=== PATIENT | male | born 1970 | race African-American/Black ===

== ENCOUNTER 2022-09-28 16:05 | Inpatient (IN) | payer MEDICAID ==
[~2022-09-28] VITALS: Ht 177.8 cm; Wt 66.7 kg
[~2022-09-28 16:05] MED LIST: CALCIUM CHLORIDE 1GM/10ML SYR IV ONE; EPINEPHRINE 0.1MG/ML (1:10,000) 10ML SYR ONE; SODIUM BICARBONATE 8.4% 1 MEQ/ML 50ML SYR IV ONE
[2022-09-28] MEDS ORDERED: NOREPINEPHRINE 8 MG in DEXT 5% WATER 242 ML IV STA (16:13)
[2022-09-28] MEDS ORDERED: SODIUM CHLORIDE 0.9% 1000ML BAG (SEPSIS BOLUS) IV ONE (16:15)
[2022-09-28] MEDS ORDERED: PIPERACILLIN/TAZ 3.375G PREMIX 50 ML IV ONE (16:15)
[2022-09-28] MEDS ORDERED: VANCOMYCIN 1G PREMIX 200 ML IV ONE (16:15)
[2022-09-28 16:42] LABS: BASOPHILS % 0.3 % (0.0-2.0); EOSINOPHILS % 0.1 % (0.0-5.0); HEMATOCRIT. 36.3 % (42.0-52.0); HEMOGLOBIN. 10.9 g/dL (14.0-18.0); LYMPHOCYTES % 17.3 % (20.0-50.0); MEAN CORPUSCULAR HEMOGLOBIN 24.3 pg (28.0-32.0); MEAN CORPUSCULAR VOLUME 81.3 fL (80.0-94.0); MEAN PLATELET VOLUME 6.8 fl (7.4-10.4); NEUTROPHILS % 79.3 % (40.0-76.0); PLATELET 501 x1000/uL (130-400); RED BLOOD CELL COUNT 4.46 mill/uL (4.7-6.1); RED CELL DISTRIBUTION WIDTH 17.4 % (11.6-14.6)
[2022-09-28 16:46] LABS: CHLORIDE 99 mEq/L (98-107)
[2022-09-28 16:47] LABS: D-DIMER 4.09 mg/L FEU (<0.50); INR 1.1; PROTHROMBIN TIME 11.3 sec (9.6-11.0)
[2022-09-28 16:48] LABS: BG BASE EXCESS 4.5 mmol/L (-2.0-2.0); BG CARBOXYHEMOGLOBIN 0.4 % (0.5-1.5); BG DEOXYHEMOGLOBIN 3.6 % (0.0-5.0); BG FRACTION INSPIRED OXYGEN 100; BG HCO3 ACT 32.5 mmol/L (22.0-26.0); BG METHEMOGLOBIN 0.2 % (0.0-1.5); BG OXYGEN SATURATION 96.4 % (92.0-98.5); BG OXYHEMOGLOBIN 95.8 % (94.0-97.0); BG PCO2 67.2 mmHg (35.0-45.0); BG PH 7.302 (7.350-7.450); BG PO2 95.6 mmHg (75.0-100.0); BG SAMPLE SITE LEFT RADIAL; BG TOTAL HEMOGLOBIN 11.4 g/dL (12.0-18.0); BG TOTAL RESPIRATORY RATE 19 b/min; BG VENT MODE PRVC
[2022-09-28 16:56] LABS: CREATINE KINASE 37 IU/L (39-308)
[2022-09-28 18:15] LABS: CLARITY URINE CLEAR (CLEAR); COLOR URINE YELLOW (YELLOW); KETONES URINE NEGATIVE (NEGATIVE); LEUKOCYTE ESTERASE URINE NEGATIVE (NEGATIVE); NITRITE URINE NEGATIVE (NEGATIVE); OCCULT BLOOD URINE NEGATIVE (NEGATIVE); PH URINE 6.5 (4.5-8.0); PROTEIN URINE 1+ (NEGATIVE); SPECIFIC GRAVITY URINE 1.019 (1.005-1.030)
[2022-09-28] MEDS ORDERED: NOREPINEPHRINE 8 MG in DEXT 5% WATER 242 ML IV ONE (18:30)
[2022-09-28] MEDS ORDERED: FENTANYL CITRATE/PF 50MCG/ML 2ML VIAL IV ONE (19:15)
[2022-09-28] MEDS ORDERED: IOHEXOL-350 100 ML BOTTLE ONE (20:05)
[2022-09-29] VITALS (34 sets, daily range): BP systolic 64–158; BP diastolic 22–84
[2022-09-29] MEDS ORDERED: DEXTROSE 50% WATER 50ML SYRINGE IV PRN (09:45)
[2022-09-29] MEDS: SODIUM CHLORIDE 0.45% 1,000 ML IV SCH (09:45)
[2022-09-29] MEDS: AZITHROMYCIN 500 MG in DEXT 5% WATER 250 ML IV SCH (10:54)
[2022-09-29] MEDS ORDERED: FUROSEMIDE 40MG/4ML VIAL IVP NR (11:00)
[2022-09-29] MEDS: ENOXAPARIN 40MG/0.4ML SYR SUBCUT SCH (11:07)
[2022-09-29 11:23] LABS: BG BASE EXCESS 7.1 mmol/L (-2.0-2.0); BG CARBOXYHEMOGLOBIN 0.3 % (0.5-1.5); BG DEOXYHEMOGLOBIN 0.5 % (0.0-5.0); BG FRACTION INSPIRED OXYGEN 100; BG HCO3 ACT 30.4 mmol/L (22.0-26.0); BG METHEMOGLOBIN 0.3 % (0.0-1.5); BG OXYGEN SATURATION 99.5 % (92.0-98.5); BG OXYHEMOGLOBIN 98.9 % (94.0-97.0); BG PCO2 37.7 mmHg (35.0-45.0); BG PH 7.524 (7.350-7.450); BG PO2 261.3 mmHg (75.0-100.0); BG SAMPLE SITE RIGHT RADIAL; BG TOTAL HEMOGLOBIN 9.2 g/dL (12.0-18.0); BG VENT MODE VENT - PRVC
[2022-09-29] MEDS ORDERED: VANCOMYCIN 1G PREMIX 200 ML IV SCH ×2 (12:00→14:00)
[2022-09-29] MEDS: BLOOD SUGAR DIAGNOSTIC STRIP TEST SCH ×3 (12:40→21:17)
[2022-09-29] MEDS: INSULIN LISPRO 100 UNITS/ML SUBCUT SCH ×3 (13:34→21:08)
[2022-09-29] MEDS ORDERED: PIPERACILLIN/TAZOBACTAM 3.375 G in DEXTROSE 5% WATER 50 ML IV SCH (14:00)
[2022-09-29] MEDS ORDERED: IPRATROPIUM/ALBUTEROL 0.5-3(2.5)MG/3ML NEB HHN PRN (14:15)
[2022-09-29 17:06] LABS: HEMATOCRIT. 26.1 % (42.0-52.0); MEAN CORPUSCULAR HEMOGLOBIN 24.5 pg (28.0-32.0); MEAN CORPUSCULAR VOLUME 79.5 fL (80.0-94.0); MEAN PLATELET VOLUME 6.9 fl (7.4-10.4); PLATELET 298 x1000/uL (130-400); RED BLOOD CELL COUNT 3.29 mill/uL (4.7-6.1); RED CELL DISTRIBUTION WIDTH 17.8 % (11.6-14.6)
[2022-09-29 17:09] LABS: CHLORIDE 104 mEq/L (98-107)
[2022-09-29 17:16] LABS: PHOSPHORUS 3.7 mg/dL (2.5-4.9)
[2022-09-29] MEDS: VANCOMYCIN 1G PREMIX 200 ML IV SCH (18:49)
[2022-09-29 19:36] LABS: PLATELET ESTIMATE NORMAL
[2022-09-29 21:59] LABS: CLARITY URINE TURBID (CLEAR); COLOR URINE ORANGE (YELLOW); KETONES URINE TRACE (NEGATIVE); LEUKOCYTE ESTERASE URINE TRACE (NEGATIVE); NITRITE URINE NEGATIVE (NEGATIVE); OCCULT BLOOD URINE 2+ (NEGATIVE); PH URINE 5.5 (4.5-8.0); PROTEIN URINE 3+ (NEGATIVE); SPECIFIC GRAVITY URINE 1.044 (1.005-1.030)
[2022-09-29 22:16] LABS: *AMPHETAMINES SCREEN URINE NEGATIVE (NEGATIVE); *BARBITURATES SCREEN URINE NEGATIVE (NEGATIVE); *BENZODIAZEPINES SCREEN URINE NEGATIVE (NEGATIVE); *COCAINE SCREEN URINE NEGATIVE (NEGATIVE); CANNABINOID URINE SCREEN NEGATIVE (NEGATIVE); METHADONE URINE SCREEN NEGATIVE (NEGATIVE); OPIATES URINE SCREEN NEGATIVE (NEGATIVE); PHENCYCLIDINE URINE SCREEN NEGATIVE (NEGATIVE)
[2022-09-30] VITALS (48 sets, daily range): BP systolic 76–156; BP diastolic 35–86
[2022-09-30] MEDS: SODIUM CHLORIDE 0.45% 1,000 ML IV SCH (00:36)
[2022-09-30] MEDS: VANCOMYCIN 1G PREMIX 200 ML IV SCH ×2 (02:52→09:00)
[2022-09-30] MEDS ORDERED: DIGOXIN 500MCG/2ML AMP IV NR (04:15)
[2022-09-30] MEDS ORDERED: PHENYLEPHRINE 100 MG in DEXT 5% WATER 240 ML IV PRN (04:15)
[2022-09-30] MEDS ORDERED: DIGOXIN 500MCG/2ML AMP IV PRN ×2 (04:53→07:20)
[2022-09-30] MEDS: PIPERACILLIN/TAZOBACTAM 3.375 G in DEXTROSE 5% WATER 50 ML IV SCH ×5 (05:31→22:06)
[2022-09-30 06:04] LABS: HEMATOCRIT. 24.5 % (42.0-52.0); HEMOGLOBIN. 7.7 g/dL (14.0-18.0); MEAN CORPUSCULAR HEMOGLOBIN 24.8 pg (28.0-32.0); MEAN CORPUSCULAR VOLUME 79.2 fL (80.0-94.0); MEAN PLATELET VOLUME 6.9 fl (7.4-10.4); PLATELET 287 x1000/uL (130-400); RED CELL DISTRIBUTION WIDTH 17.2 % (11.6-14.6)
[2022-09-30 06:30] LABS: CHLORIDE 102 mEq/L (98-107)
[2022-09-30] MEDS: BLOOD SUGAR DIAGNOSTIC STRIP TEST SCH ×3 (08:14→12:48)
[2022-09-30] MEDS: FAMOTIDINE 20MG/2ML VIAL IV SCH (08:49)
[2022-09-30] MEDS: INSULIN LISPRO 100 UNITS/ML SUBCUT SCH ×3 (08:50→23:40)
[2022-09-30] MEDS ORDERED: INFLUENZA VACCINE 05/PF 0.5 ML SYRINGE IM ONE (09:15)
[2022-09-30 10:41] LABS: BG BASE EXCESS 6.7 mmol/L (-2.0-2.0); BG CARBOXYHEMOGLOBIN 0.9 % (0.5-1.5); BG DEOXYHEMOGLOBIN 2.3 % (0.0-5.0); BG FRACTION INSPIRED OXYGEN 50; BG METHEMOGLOBIN 0.4 % (0.0-1.5); BG OXYGEN SATURATION 97.7 % (92.0-98.5); BG OXYHEMOGLOBIN 96.4 % (94.0-97.0); BG PCO2 43.7 mmHg (35.0-45.0); BG PH 7.469 (7.350-7.450); BG PO2 100.1 mmHg (75.0-100.0); BG SAMPLE SITE RIGHT RADIAL; BG TOTAL HEMOGLOBIN 7.9 g/dL (12.0-18.0); BG VENT MODE VENT - APRV
[2022-09-30] MEDS: SODIUM CHLORIDE 0.9% 1,000 ML IV SCH ×2 (10:43→22:07)
[2022-09-30] MEDS: ENOXAPARIN 40MG/0.4ML SYR SUBCUT SCH (10:44)
[2022-09-30 11:12] LABS: T4 FREE 1.23 ng/dL (0.76-1.46)
[2022-09-30] MEDS: AZITHROMYCIN 500 MG in DEXT 5% WATER 250 ML IV SCH (13:04)
[2022-09-30 14:57] LABS: TOTAL IRON BINDING CAPACITY 187 ug/dL (250-450)
[2022-09-30 15:24] LABS: VITAMIN B12 SERUM >2000 pg/mL pg/mL (211-911)
[2022-09-30 16:38] LABS: PLATELET ESTIMATE NORMAL
[2022-09-30] MEDS ORDERED: IPRATROPIUM BROMIDE (0.02%) 0.5MG/2.5ML NEB HHN PRN (18:45)
[2022-09-30] MEDS ORDERED: ALBUTEROL (0.083%) 2.5MG/3ML NEB HHN PRN (18:45)
[2022-10-01] VITALS (20 sets, daily range): BP systolic 73–164; BP diastolic 51–86
[2022-10-01] MEDS ORDERED: VANCOMYCIN 1.25GM PMX (XELLIA) 250 ML IV SCH
[2022-10-01] MEDS: BLOOD SUGAR DIAGNOSTIC STRIP TEST SCH ×5 (00:33→23:39)
[2022-10-01] MEDS: PIPERACILLIN/TAZOBACTAM 3.375 G in DEXTROSE 5% WATER 50 ML IV SCH ×3 (05:41→21:18)
[2022-10-01] MEDS: INSULIN LISPRO 100 UNITS/ML SUBCUT SCH ×4 (05:58→23:39)
[2022-10-01 06:51] LABS: BASOPHILS % 0.1 % (0.0-2.0); EOSINOPHILS % 0.7 % (0.0-5.0); HEMATOCRIT. 25.3 % (42.0-52.0); HEMOGLOBIN. 7.9 g/dL (14.0-18.0); LYMPHOCYTES % 7.3 % (20.0-50.0); MEAN CORPUSCULAR HEMOGLOBIN 24.8 pg (28.0-32.0); MEAN PLATELET VOLUME 7.1 fl (7.4-10.4); NEUTROPHILS % 80.9 % (40.0-76.0); PLATELET 287 x1000/uL (130-400); RED BLOOD CELL COUNT 3.17 mill/uL (4.7-6.1); RED CELL DISTRIBUTION WIDTH 17.2 % (11.6-14.6)
[2022-10-01 07:35] LABS: CHLORIDE 104 mEq/L (98-107)
[2022-10-01 08:59] LABS: BG BASE EXCESS 6.6 mmol/L (-2.0-2.0); BG CARBOXYHEMOGLOBIN 0.8 % (0.5-1.5); BG DEOXYHEMOGLOBIN 12.2 % (0.0-5.0); BG HCO3 ACT 31.1 mmol/L (22.0-26.0); BG METHEMOGLOBIN 0.5 % (0.0-1.5); BG OXYGEN SATURATION 87.6 % (92.0-98.5); BG OXYHEMOGLOBIN 86.5 % (94.0-97.0); BG PCO2 44.6 mmHg (35.0-45.0); BG PH 7.461 (7.350-7.450); BG PO2 55.8 mmHg (75.0-100.0); BG SAMPLE SITE RIGHT RADIAL; BG TOTAL HEMOGLOBIN 8.2 g/dL (12.0-18.0)
[2022-10-01] MEDS: FAMOTIDINE 20MG/2ML VIAL IV SCH (09:03)
[2022-10-01] MEDS: AZITHROMYCIN 500 MG in DEXT 5% WATER 250 ML IV SCH (09:04)
[2022-10-01 10:45] LABS: BG VENT MODE VENT-PRVC
[2022-10-01 10:46] LABS: BG FRACTION INSPIRED OXYGEN 40
[2022-10-01] MEDS ORDERED: POTASSIUM CHLORIDE 20MEQ TABLET SR PO NR (13:00)
[2022-10-01] MEDS: SODIUM CHLORIDE 0.9% 1,000 ML IV SCH (14:49)
[2022-10-01] MEDS: LEVETIRACETAM 500MG/5ML CUP PO SCH ×2 (18:47→21:16)
[2022-10-01] MEDS: VANCOMYCIN 750MG PREMIX 150 ML IV SCH (21:17)
[2022-10-02] VITALS (10 sets, daily range): BP systolic 126–165; BP diastolic 64–83
[2022-10-02] MEDS: BLOOD SUGAR DIAGNOSTIC STRIP TEST SCH ×2 (05:48→12:35)
[2022-10-02] MEDS: PIPERACILLIN/TAZOBACTAM 3.375 G in DEXTROSE 5% WATER 50 ML IV SCH ×2 (05:48→13:01)
[2022-10-02] MEDS: INSULIN LISPRO 100 UNITS/ML SUBCUT SCH ×2 (05:48→13:01)
[2022-10-02] MEDS: VANCOMYCIN 750MG PREMIX 150 ML IV SCH (08:44)
[2022-10-02] MEDS: LEVETIRACETAM 500MG/5ML CUP PO SCH (08:44)
[2022-10-02] MEDS: FAMOTIDINE 20MG/2ML VIAL IV SCH (08:44)
[2022-10-02] MEDS ORDERED: LORAZEPAM 2MG/ML CPJ IV PRN (09:15)
[2022-10-02 10:09] LABS: BASOPHILS % 0.3 % (0.0-2.0); EOSINOPHILS % 0.4 % (0.0-5.0); HEMATOCRIT. 22.3 % (42.0-52.0); HEMOGLOBIN. 7.1 g/dL (14.0-18.0); LYMPHOCYTES % 7.4 % (20.0-50.0); MEAN CORPUSCULAR HEMOGLOBIN 24.9 pg (28.0-32.0); MEAN CORPUSCULAR VOLUME 78.7 fL (80.0-94.0); MEAN PLATELET VOLUME 7.1 fl (7.4-10.4); NEUTROPHILS % 78.9 % (40.0-76.0); PLATELET 373 x1000/uL (130-400); RED BLOOD CELL COUNT 2.84 mill/uL (4.7-6.1); RED CELL DISTRIBUTION WIDTH 17.2 % (11.6-14.6)
[2022-10-02] MEDS: AZITHROMYCIN 500 MG in DEXT 5% WATER 250 ML IV SCH (10:26)
[2022-10-02 10:48] LABS: CHLORIDE 108 mEq/L (98-107)
[2022-10-02] MEDS ORDERED: VALPROATE SODIUM 250MG/5ML UDC GT SCH (12:00)
[2022-10-02] MEDS ORDERED: LACOSAMIDE 100 MG TABLET PO SCH (21:00)
== END 2022-10-02 17:55 | DRG 720 ==
LOC: ER 16:05 → CVICU 18:08 → EDBEDREQ 18:24 → 5EST 09-30 18:00
PROVIDERS: ADMIT Internal Medicine; ATTEND Internal Medicine
PROC: 5A1955Z Respiratory Ventilation, Greater than 96 Consecutive Hours (ICD-10-PCS; principal; 2022-09-28)
DX: A41.9 Sepsis, unspecified organism (principal); J96.21 Acute and chronic respiratory failure with hypoxia; I46.9 Cardiac arrest, cause unspecified; R65.21 Severe sepsis with septic shock; G93.40 Encephalopathy, unspecified; J15.0 Pneumonia due to Klebsiella pneumoniae; E46 Unspecified protein-calorie malnutrition; L89.144 Pressure ulcer of left lower back, stage 4; Z99.11 Dependence on respirator [ventilator] status; Z93.0 Tracheostomy status; G93.1 Anoxic brain damage, not elsewhere classified; D64.9 Anemia, unspecified; E11.621 Type 2 diabetes mellitus with foot ulcer; E11.65 Type 2 diabetes mellitus with hyperglycemia; G40.909 Epilepsy, unspecified, not intractable, without status epilepticus; I89.0 Lymphedema, not elsewhere classified; L98.429 Non-pressure chronic ulcer of back with unspecified severity; B00.9 Herpesviral infection, unspecified; D75.839 Thrombocytosis, unspecified; R13.10 Dysphagia, unspecified; R00.0 Tachycardia, unspecified; I48.0 Paroxysmal atrial fibrillation; I10 Essential (primary) hypertension; Z93.1 Gastrostomy status; Z68.21 Body mass index [BMI] 21.0-21.9, adult
CPT/HCPCS: 36415; 36600; 71045; 71275; 74174; 80048; 80053; 80202; 80305; 80339; 81003; 82375; 82550; 82607; 82805; 82962; 83036; 83540; 83550; 83605; 83735; 83880; 84100; 84145; 84436; 84439; 84443; 84480; 84481; 84484; 85025; 85044; 85379; 86850; 86900; 87070; 87077; 87186; 87426; 93005; 93306; 93923; 93970; 94002; 94003; 94640; 99291; C9803; J0456; J1160; J1650; J1815; J2060; J2543; J3010; J3370; J3490; J7030; J7060; Q9967

== ENCOUNTER 2025-01-05 05:46 | Inpatient (IN) | payer MEDICAID ==
[~2025-01-05] VITALS: Ht 185.4 cm; Wt 103.0 kg
[2025-01-05] VITALS (19 sets, daily range): BP systolic 77–140; BP diastolic 62–88; PULSE 63–94; RESP 14–22; TEMP 36.4–36.6; O2SAT 98–100
[2025-01-05 06:55] LABS: BASOPHILS % 0.3 % (0.0-2.0); EOSINOPHILS % 1.4 % (0.0-5.0); HEMATOCRIT. 33.2 % (42.0-52.0); HEMOGLOBIN. 10.7 g/dL (14.0-18.0); LYMPHOCYTES % 12.3 % (20.0-50.0); MEAN CORPUSCULAR HEMOGLOBIN 26.5 pg (28.0-32.0); MEAN CORPUSCULAR HGB CONC 32.3 g/dL (31.0-37.0); MEAN PLATELET VOLUME 7.6 fl (7.4-10.4); MONOCYTES % 13.5 % (2.0-8.0); NEUTROPHILS % 72.5 % (40.0-76.0); PLATELET 315 x1000/uL (130-400); RED BLOOD CELL COUNT 4.05 mill/uL (4.7-6.1); RED CELL DISTRIBUTION WIDTH 14.7 % (11.6-14.6); WHITE BLOOD COUNT 7.5 x1000/uL (4.5-11.0)
[2025-01-05 07:07] LABS: PROTHROMBIN TIME 10.3 sec (9.6-11.0)
[2025-01-05 07:20] LABS: CHLORIDE 94 mEq/L (98-107); POTASSIUM 3.9 mEq/L (3.5-5.1); SODIUM 136 mEq/L (136-145)
[2025-01-05 07:21] LABS: CALCIUM 9.8 mg/dL (8.7-10.4); CARBON DIOXIDE 35 mEq/L (21-32)
[2025-01-05 07:26] LABS: CREATININE 0.8 mg/dL (0.6-1.3); GLUCOSE 177 mg/dL (70-105); UREA NITROGEN BLOOD 21 mg/dL (9-23)
[2025-01-05 07:28] LABS: ALANINE AMINOTRANSFERASE 10 IU/L (10-49); ALBUMIN 4.2 g/dL (3.2-4.8); ASPARTATE AMINOTRANSFERASE 15 IU/L (<34); BILIRUBIN DIRECT 0.1 mg/dL (<=3.0); BILIRUBIN TOTAL 0.4 mg/dL (0.1-1.0); PROTEIN TOTAL 8.2 g/dL (6.0-8.3)
[2025-01-05] MEDS: MIDODRINE HCL 5MG TABLET PO SCH (10:44)
[2025-01-05] MEDS: SODIUM CHLORIDE 0.9% 1,000 ML IV SCH (11:20)
[2025-01-05] MEDS ORDERED: VALP250S25 PO (13:08)
[2025-01-05] MEDS ORDERED: LEVO100T9 PO (13:08)
[2025-01-05] MEDS ORDERED: SUCR1TAB PO (13:08)
[2025-01-05] MEDS ORDERED: HYDROCODONE/ACETAMINOPHEN 5/325MG TABLET PO PRN (13:15)
[2025-01-05] MEDS ORDERED: DEXTROSE 50% WATER 50ML SYRINGE IV PRN (13:15)
[2025-01-05] MEDS ORDERED: MAGNESIUM/ALUMINUM HYDROXIDE/SIMETHICONE 30ML UDC PO PRN (13:15)
[2025-01-05] MEDS ORDERED: ACETAMINOPHEN 325MG TABLET PO PRN (13:15)
[2025-01-05] MEDS ORDERED: CLONIDINE 0.1MG TABLET PO PRN (13:15)
[2025-01-05] MEDS ORDERED: SUCRALFATE 1G TABLET GT SCH (13:15)
[2025-01-05 13:36] LABS: BG BASE EXCESS 7.7 mmol/L (-2.0-3.0); BG CARBOXYHEMOGLOBIN 0.7 % (0.5-1.5); BG DEOXYHEMOGLOBIN 0.9 % (0.0-5.0); BG FRACTION INSPIRED OXYGEN 40; BG HCO3 ACT 32.5 mmol/L (21.0-28.0); BG METHEMOGLOBIN 0.3 % (0.5-1.5); BG OXYGEN SATURATION 99.1 % (94.0-98.0); BG OXYHEMOGLOBIN 98.1 % (94.0-98.0); BG PCO2 46.8 mmHg (35.0-48.0); BG PH 7.459 (7.350-7.450); BG PO2 127.8 mmHg (83.0-108.0); BG SAMPLE SITE LEFT RADIAL; BG TOTAL HEMOGLOBIN 10.7 g/dL (13.5-17.5); BG TOTAL RESPIRATORY RATE 14 b/min; BG VENT MODE VENT - AC
[2025-01-05] MEDS: VANCOMYCIN 2GM PMX (XELLIA) 400 ML IV SCH (13:58)
[2025-01-05] MEDS: SUCRALFATE 1G TABLET PO SCH (14:10)
[2025-01-05] MEDS: VALPROIC ACID 250MG CAPSULE PO SCH (14:10)
[2025-01-05] MEDS: ONDANSETRON HCL 4MG/2ML INJ IV PRN (14:10)
[2025-01-05] MEDS: LEVOTHYROXINE SODIUM 100MCG TABLET PO SCH (14:15)
[2025-01-05] MEDS: PIPERACILLIN/TAZO 3.375G/50ML 50 ML IV SCH (14:16)
[2025-01-05] MEDS ORDERED: NALOXONE HCL 0.4MG/ML VIAL IV PRN (15:00)
[2025-01-05 17:25] LABS: CLARITY URINE CLEAR (CLEAR); COLOR URINE YELLOW (YELLOW); GLUCOSE URINE NEGATIVE (NEGATIVE); KETONES URINE NEGATIVE (NEGATIVE); LEUKOCYTE ESTERASE URINE NEGATIVE (NEGATIVE); NITRITE URINE NEGATIVE (NEGATIVE); OCCULT BLOOD URINE NEGATIVE (NEGATIVE); PH URINE 8.5 (4.5-8.0); PROTEIN URINE TRACE (NEGATIVE); SPECIFIC GRAVITY URINE 1.023 (1.005-1.030)
[2025-01-05 17:37] LABS: BACTERIA URINE NONE SEEN; RBC URINE NONE SEEN /hpf (0-2); SQUAMOUS EPITHELIAL CELL URINE NONE SEEN /lpf (RARE/1+); WBC URINE 0-2 /hpf (0-2)
[2025-01-05] MEDS: INSULIN LISPRO 100 UNITS/ML SUBCUT SCH (18:00)
[2025-01-05] MEDS: BLOOD SUGAR DIAGNOSTIC STRIP TEST SCH (18:22)
[2025-01-05] MEDS: VANCOMYCIN 1.5GM PMX (XELLIA) 300 ML IV SCH (22:01)
[2025-01-05] MEDS: PANTOPRAZOLE SODIUM 40 MG/VIAL IV SCH (22:01)
[2025-01-06] VITALS (25 sets, daily range): BP systolic 94–146; BP diastolic 48–83; PULSE 59–90; RESP 14–20; TEMP 36.3–36.9; O2SAT 86–100
[2025-01-06] MEDS: VALPROATE SODIUM 250MG/5ML UDC PO SCH (05:56)
[2025-01-06 07:10] LABS: BASOPHILS % 0.3 % (0.0-2.0); EOSINOPHILS % 1.9 % (0.0-5.0); HEMATOCRIT. 29.2 % (42.0-52.0); HEMOGLOBIN. 9.3 g/dL (14.0-18.0); LYMPHOCYTES % 13.9 % (20.0-50.0); MEAN CORPUSCULAR HEMOGLOBIN 26.1 pg (28.0-32.0); MEAN CORPUSCULAR HGB CONC 31.9 g/dL (31.0-37.0); MEAN CORPUSCULAR VOLUME 81.8 fL (80.0-94.0); MEAN PLATELET VOLUME 7.8 fl (7.4-10.4); MONOCYTES % 10.8 % (2.0-8.0); NEUTROPHILS % 73.1 % (40.0-76.0); PLATELET 280 x1000/uL (130-400); RED BLOOD CELL COUNT 3.57 mill/uL (4.7-6.1); RED CELL DISTRIBUTION WIDTH 14.7 % (11.6-14.6); WHITE BLOOD COUNT 6.6 x1000/uL (4.5-11.0)
[2025-01-06 07:22] LABS: CARBON DIOXIDE 29 mEq/L (21-32); CHLORIDE 98 mEq/L (98-107); POTASSIUM 3.6 mEq/L (3.5-5.1); SODIUM 136 mEq/L (136-145)
[2025-01-06 07:23] LABS: CALCIUM 9.2 mg/dL (8.7-10.4)
[2025-01-06 07:27] LABS: IRON 34 ug/dL (65-175)
[2025-01-06 07:28] LABS: CREATININE 0.7 mg/dL (0.6-1.3); GLUCOSE 148 mg/dL (70-105); UREA NITROGEN BLOOD 21 mg/dL (9-23)
[2025-01-06 07:29] LABS: ALANINE AMINOTRANSFERASE 8 IU/L (10-49); ALBUMIN 3.5 g/dL (3.2-4.8); ASPARTATE AMINOTRANSFERASE 13 IU/L (<34)
[2025-01-06 07:30] LABS: BILIRUBIN DIRECT 0.2 mg/dL (<=3.0); BILIRUBIN TOTAL 0.6 mg/dL (0.1-1.0); PROTEIN TOTAL 6.7 g/dL (6.0-8.3); TOTAL IRON BINDING CAPACITY 272 ug/dl (250-425)
[2025-01-06 07:33] LABS: FERRITIN 148 ng/mL (22-322); FOLIC ACID (FOLATE) SERUM 19.76 ng/mL (>5.38); VITAMIN B12 SERUM 535 pg/mL (211-911)
[2025-01-06] MEDS ORDERED: PANTOPRAZOLE SODIUM 40 MG/VIAL IV SCH (09:00)
[2025-01-06] MEDS: LEVOTHYROXINE SODIUM 100MCG TABLET PO SCH (12:17)
[2025-01-06] MEDS: LACTULOSE 20G/30ML UDC PO SCH (13:30)
[2025-01-06] MEDS: FERROUS SULFATE 300MG/5ML UDC PEG SCH (15:15)
[2025-01-07] VITALS (17 sets, daily range): BP systolic 93–138; BP diastolic 62–94; PULSE 63–89; RESP 14–24; TEMP 36.2–36.6; O2SAT 96–100
[2025-01-07] MEDS ORDERED: PANT40SU MT (09:55)
[2025-01-07 10:22] LABS: BASOPHILS % 0.2 % (0.0-2.0); EOSINOPHILS % 2.1 % (0.0-5.0); HEMATOCRIT. 28.8 % (42.0-52.0); HEMOGLOBIN. 9.2 g/dL (14.0-18.0); LYMPHOCYTES % 13.2 % (20.0-50.0); MEAN CORPUSCULAR HEMOGLOBIN 26.6 pg (28.0-32.0); MEAN CORPUSCULAR HGB CONC 31.8 g/dL (31.0-37.0); MEAN CORPUSCULAR VOLUME 83.5 fL (80.0-94.0); MEAN PLATELET VOLUME 7.8 fl (7.4-10.4); MONOCYTES % 13.9 % (2.0-8.0); NEUTROPHILS % 70.6 % (40.0-76.0); PLATELET 275 x1000/uL (130-400); RED BLOOD CELL COUNT 3.45 mill/uL (4.7-6.1)
[2025-01-07 10:46] LABS: CARBON DIOXIDE 27 mEq/L (21-32); CHLORIDE 100 mEq/L (98-107); POTASSIUM 3.8 mEq/L (3.5-5.1); SODIUM 137 mEq/L (136-145)
[2025-01-07 10:52] LABS: CREATININE 0.7 mg/dL (0.6-1.3); GLUCOSE 243 mg/dL (70-105); UREA NITROGEN BLOOD 9 mg/dL (9-23)
[2025-01-08] MEDS ORDERED: VANCOMYCIN 1GM PMX (XELLIA) 200 ML IV SCH (06:00)
== END 2025-01-07 17:52 | DRG 241 ==
LOC: ER 05:46 → EDBEDREQ 06:08 → 5EST 08:43 → EDBEDREQSVC 08:45 → EDBEDREQTM 08:45 → EDBEDREQ 08:45 → EDBEDREQSVC 09:05
PROVIDERS: ADMIT Internal Medicine; ATTEND Internal Medicine
PROC: 5A1945Z Respiratory Ventilation, 24-96 Consecutive Hours (ICD-10-PCS; principal; 2025-01-05)
DX: K29.61 Other gastritis with bleeding (principal); J96.20 Acute and chronic respiratory failure, unspecified whether with hypoxia or hypercapnia; G93.49 Other encephalopathy; I95.89 Other hypotension; L97.319 Non-pressure chronic ulcer of right ankle with unspecified severity; D64.9 Anemia, unspecified; E11.51 Type 2 diabetes mellitus with diabetic peripheral angiopathy without gangrene; I10 Essential (primary) hypertension; I25.10 Atherosclerotic heart disease of native coronary artery without angina pectoris; I48.0 Paroxysmal atrial fibrillation; R13.12 Dysphagia, oropharyngeal phase; K76.9 Liver disease, unspecified; Z93.1 Gastrostomy status; Z74.01 Bed confinement status; Z93.0 Tracheostomy status; Z99.11 Dependence on respirator [ventilator] status; Z86.73 Personal history of transient ischemic attack (TIA), and cerebral infarction without residual deficits; Z86.74 Personal history of sudden cardiac arrest; Z87.440 Personal history of urinary (tract) infections
CPT/HCPCS: 31720; 36415; 36600; 71045; 74018; 80048; 80076; 80202; 81003; 82270; 82375; 82607; 82728; 82746; 82805; 82962; 83036; 83540; 83550; 83735; 84100; 85025; 85044; 86850; 86900; 93880; 93970; 94002; 94003; 94070; 94664; 99285; A4606; C1725; J1815; J2405; J2470; J2543; J3370; J7030